=== PATIENT | female | born 1955 | race Caucasian/White ===

== ENCOUNTER 2020-05-02 08:51 | Inpatient (IN) ==
[2020-05-02] MEDS ORDERED: CeFAZolin Syr 2,000MG/20 ML 2,000 MG/20 ML SYRINGE IVPB ONE (09:20)
[2020-05-02] MEDS ORDERED: Ringers Solution, Lactated 1,000 ML IVC SCH ×2 (09:30→13:19)
[2020-05-02] MEDS ORDERED: *HR* FentaNYL (PF) 100 MCG/2 ML VIAL IVP PRN (09:47)
[2020-05-02] MEDS ORDERED: Promethazine 6.25 MG in Water for inj. (sterile) 20 ML IVPB ONE (09:47)
[2020-05-02] MEDS ORDERED: Ondansetron 4 MG/2 ML VIAL IVP PRN ×2 (09:47→13:19)
[2020-05-02] MEDS ORDERED: Albuterol 2.5 MG/3 ML NEBULIZER IH PRN (09:50)
[2020-05-02] MEDS ORDERED: flumazeniL 0.5 MG/5 ML VIAL IVP PRN (09:50)
[2020-05-02] MEDS ORDERED: Naloxone 0.4 MG/ML INJ IVP PRN ×2 (09:50→13:19)
[2020-05-02] MEDS ORDERED: ROPIVACAINE/PF/NS 0.25% 1 EACH SYRINGE INTRAART ONE (09:51)
[2020-05-02] MEDS ORDERED: *HR* Midazolam HCl 2 MG/2 ML VIAL ONE (09:51)
[2020-05-02] MEDS ORDERED: Ropivacaine/PF 0.5% 30 ML VIAL ONE (09:51)
[2020-05-02] MEDS ORDERED: Lidocaine HCL 4 ML Topical Solution (Laryng-O-Jet Kit Sterile Pak) TP ONE ×2 (09:55→10:49)
[2020-05-02] MEDS ORDERED: Lidocaine -MPF 2% 2 ML VIAL ONE ×2 (09:55→10:44)
[2020-05-02] MEDS ORDERED: *HR* Succinylcholine 200 MG/10 ML VIAL IVP ONE ×2 (09:55→10:45)
[2020-05-02] MEDS ORDERED: Ondansetron 4 MG/2 ML VIAL IVP ONE ×2 (09:56→13:19)
[2020-05-02] MEDS ORDERED: Dexamethasone 4 MG/ML VIAL IVP ONE (09:56)
[2020-05-02] MEDS ORDERED: Pregabalin 50 MG CAPSULE PO ONE ×2 (09:56→13:19)
[2020-05-02] MEDS ORDERED: *HR* Propofol 200 MG/20 ML VIAL IVP ONE ×3 (09:57→11:17)
[2020-05-02] MEDS ORDERED: Famotidine 20 MG/2 ML VIAL IVP ONE ×2 (10:00→13:19)
[2020-05-02] MEDS ORDERED: Vancomycin 1,000 MG VIAL ONE ×2 (10:02→10:31)
[2020-05-02] MEDS ORDERED: Ethanol\\Acetic Acid\\Na Ace\\Ben 1,000 ML IRRIG.SOLN IR ONE ×2 (10:02→10:31)
[2020-05-02] MEDS ORDERED: Dexamethasone 4 MG/ML VIAL ONE (10:44)
[2020-05-02] MEDS ORDERED: Ondansetron 4 MG/2 ML VIAL ONE (10:44)
[2020-05-02] MEDS ORDERED: *HR* Rocuronium Bromide 50 MG/5 ML VIAL ONE (10:45)
[2020-05-02] MEDS ORDERED: Povidone-Iodine 45 ML, Sodium Chloride IRRigation 1,000 ML IR ONE (11:10)
[2020-05-02] MEDS ORDERED: *HR* FentaNYL (PF) 100 MCG/2 ML VIAL ONE (11:18)
[2020-05-02] MEDS ORDERED: EPHEDrine 50 MG/ML VIAL ONE (11:29)
[2020-05-02] MEDS: *HR* HYDROmorphone PF 0.5 MG/0.5 ML SYRINGE IVP PRN ×2 (12:28→12:32)
[2020-05-02] MEDS ORDERED: D5% in Water 1,000 ML IVC PRN (13:19)
[2020-05-02] MEDS ORDERED: Dextrose Gel 15 GM/37.5 ML TUBE PO PRN ×2 (13:19)
[2020-05-02] MEDS ORDERED: Sennosides 8.6 MG TABLET PO PRN (13:19)
[2020-05-02] MEDS ORDERED: *HR* OxyCODONE/APAP 5/325 TABLET PO PRN (13:19)
[2020-05-02] MEDS ORDERED: *HR* Dextrose 50 % in Water (Vial) 50 ML VIAL IVP PRN (13:19)
[2020-05-02] MEDS ORDERED: *HR* OxyCODONE Immed Rel 5 MG TABLET PO PRN (13:19)
[2020-05-02] MEDS ORDERED: MOM Conc 10 ML UD.LIQ PO PRN (13:19)
[2020-05-02 13:58] LABS: Hematocrit 41.4 % (35.3-44.9); Hemoglobin 13.5 g/dL (11.5-15.4)
[2020-05-02 15:15] VITALS: BP 132/91
[2020-05-02] MEDS ORDERED: CeFAZolin 2 GM/120 ML BAG IVPB SCH ×2 (16:00→19:00)
[2020-05-02] MEDS ORDERED: Insulin LISPRO 300 UNITS/3 ML VIAL SQ SCH ×2 (16:30→21:00)
[2020-05-02] MEDS ORDERED: *HR* Enoxaparin 30 MG/0.3 ML SYRINGE SQ SCH ×2 (18:00)
== END 2020-05-02 18:30 | disposition home or self-care (01) | DRG 483 ==
LOC: SAMDAY 08:51 → 3NENU 13:18
PROVIDERS: ADMIT Orthopaedic Surgery; ATTEND Orthopaedic Surgery